=== PATIENT | female | born 1975 | race African-American/Black ===

== ENCOUNTER 2019-06-30 15:46 | Emergency (ER) | payer MEDICAID ==
[~2019-06-30] VITALS: Ht 172.7 cm; Wt 120.0 kg
[~2019-06-30 15:46] MED LIST: AMLO10TA4 PO
[2019-06-30 16:33] VITALS: BP 134/64
== END 2019-06-30 22:35 | disposition left against medical advice (07) ==
LOC: ER 15:46
DX: Z53.21 Procedure and treatment not carried out due to patient leaving prior to being seen by health care provider (principal)

== ENCOUNTER 2019-07-01 15:47 | Emergency (ER) | payer MEDICAID ==
[~2019-07-01] VITALS: Ht 157.5 cm; Wt 100.0 kg
[2019-07-01 16:16] VITALS: BP 148/69
[2019-07-01] MEDS ORDERED: HYDROCODONE/ACETAMINOPHEN 5/325MG TABLET PO ONE (17:00)
== END 2019-07-01 17:47 | disposition home or self-care (01) ==
LOC: ER 15:47
DX: M25.562 Pain in left knee (principal); I10 Essential (primary) hypertension
CPT/HCPCS: 99283